=== PATIENT | female | born 1985 | race Caucasian/White ===

== ENCOUNTER 2019-02-28 16:53 | Emergency (ER) | payer OTHER ==
[2019-02-28 16:58] VITALS: BP 102/65; PULSE 92; TEMP 97.9; BMI 22.4
--- NOTE | 2019-02-28 17:00 | PDOC ---
Rapid Medical Evaluation Chief Complaint: Vomiting/Diarrhea Time Seen by Provider: 02/28/19 16:55 Medical Evaluation: Allergies Allergy/AdvReac Type Severity Reaction Status Date / Time No Known Allergies Allergy Verified 02/28/19 16:55 02/28/19 16:57 I have performed a brief in-person evaluation of this patient. The patient presents with a chief complaint of: n/v/d and diarrhea today, no f/ c. No sick contacts, travel or abx use. No pmhx Pertinent physical exam findings:Stable and well jung w/ benign abd, tolerating po in triage I have ordered the following:nothing The patient will proceed to the ED for further evaluation Discharge Disposition - Diagnosis Nausea & vomiting Qualifiers: Vomiting type: unspecified Vomiting Intractability: non-intractable Qualified Code(s): R11.2 - Nausea with vomiting, unspecified Diarrhea Qualifiers: Diarrhea type: unspecified type Qualified Code(s): R19.7 - Diarrhea, unspecified - Referrals - Patient Instructions - Post Discharge Activity
[2019-02-28] MEDS ORDERED: ONDANSETRON *ODT* 4 MG TABLET SL ONE (17:12)
[2019-02-28] MEDS ORDERED: ONDANSETRON *ODT* 4 MG TABLET ONE (17:45)
--- NOTE | 2019-02-28 18:18 | PDOC ---
History of Present Illness - General Chief Complaint: Vomiting/Diarrhea Stated Complaint: VOMITING/DIARRHEA Time Seen by Provider: 02/28/19 16:55 History Source: Patient Exam Limitations: No Limitations - History of Present Illness Travel History: No Initial Comments: 02/28/19 18:13 34-year-old female with no past medical history presents to ED with complaints of nausea and vomiting with diarrhea since last night. Patient denies abdominal pain, fever, chills but states mild dysuria. Patient denies GI irregular menses or recent travel/illness. She states continue to make urine and is able to tolerate fluids but has poor solid intake since this morning Timing/Duration: reports: intermittent Activities at Onset: reports: none Aggravating Factors: improves with: None Alleviating Factors: improves with: None Past History - Travel Traveled outside of the country in the last 30 days: No Close contact w/someone who was outside of country & ill: No - Past Medical History Allergies/Adverse Reactions: Allergies Allergy/AdvReac Type Severity Reaction Status Date / Time No Known Allergies Allergy Verified 02/28/19 16:55 Home Medications: Ambulatory Orders Vitamins (Sjr) - 1 tab PO DAILY 10/22/14 Acetaminophen [Tylenol .Regular Strength -] 650 mg PO Q4H PRN #0 tablet Ibuprofen [Motrin -] 600 mg PO Q4H PRN #0 tablet 10/25/14 Vitamins (Sjr) - 1 tab PO DAILY #0 tablet 10/25/14 Asthma: No Cancer: No Cardiac Disorders: No COPD: No Diabetes: No HTN: No Seizures: No Thyroid Disease: No Other medical history: DENIES - Immunization History Immunization Up to Date: Yes - Suicide/Smoking/Psychosocial Hx Smoking History: Never smoked Have you smoked in the past 12 months: No Hx Alcohol Use: No Drug/Substance Use Hx: No Hx Substance Use Treatment: No Patient Lives Alone: No Lives with/in: spouse/SO Review of Systems - Review of Systems Able to Perform ROS?: Yes Constitutional: No: Symptoms Reported HEENTM: No: Symptoms Reported Respiratory: No: Symptoms reported Cardiac (ROS): No: Symptoms Reported ABD/GI: Yes: Diarrhea, Nausea, Poor Appetite, Vomiting. No: Poor Fluid Intake, Abdominal cramping : Yes: Symptoms Reported, Dysuria (mild) Musculoskeletal: No: Symptoms Reported Integumentary: No: Symptoms Reported Hematologic/Lymphatic: No: Symptoms Reported *Physical Exam - Vital Signs Last Vital Signs Temp Pulse Resp BP Pulse Ox 97.9 F 92 H 18 102/65 99 02/28/19 16:56 02/28/19 16:56 02/28/19 16:56 02/28/19 16:56 02/28/19 16:56 - Physical Exam General Appearance: Yes: Nourished, Appropriately Dressed. No: Apparent Distress HEENT: negative: Pale Conjunctivae Respiratory/Chest: positive: Lungs Clear, Normal Breath Sounds. negative: Respiratory Distress, Accessory Muscle Use Cardiovascular: positive: Regular Rhythm, Regular Rate. negative: Murmur Gastrointestinal/Abdominal: positive: Soft. negative: Distended, Tenderness Musculoskeletal: negative: CVA Tenderness Extremity: positive: Normal Inspection Integumentary: positive: Normal Color, Warm, Moist Neurologic: positive: Motor Strength 5/5 (ambulatory) ED Treatment Course - Medications Given in the ED: ED Medications Discontinued Medications Generic Name Dose Route Start Last Admin Trade Name Lucasq PRN Reason Stop Dose Admin Ondansetron HCl 4 mg 02/28/19 17:12 02/28/19 17:51 Zofran Odt - SL 02/28/19 17:13 4 mg ONCE ONE Administration Medical Decision Making - Medical Decision Making 02/28/19 18:20 Chief complaint nausea vomiting and mild dysuria with diarrhea since last night. Patient states poor solid intake since this morning. Patient has no other complaints Exam. Patient had no abdominal tenderness vital signs stable patient drinking fluids upon my arrival Plan urinalysis urine urine culture along with Zofran by mouth followed by by mouth challenge 02/28/19 18:51 Patient tolerating crackers and drinking water. Patient will be discharged home with Zofran and recommended to follow bland diet plenty of fluids 02/28/19 18:52 Laboratory Tests 02/28/19 17:44 Urine HCG, Qual Negative *DC/Admit/Observation/Transfer Diagnosis at time of Disposition: Nausea & vomiting Qualifiers: Vomiting type: unspecified Vomiting Intractability: non-intractable Qualified Code(s): R11.2 - Nausea with vomiting, unspecified Diarrhea Qualifiers: Diarrhea type: unspecified type Qualified Code(s): R19.7 - Diarrhea, unspecified - Discharge Dispostion Disposition: HOME Condition at time of disposition: Improved - Referrals - Patient Instructions Additional Instructions: Take Zofran as needed for nausea. Please follow bland diet and drink plenty of fluids. - Post Discharge Activity
[2019-02-28 18:28] LABS: PH,URINE 5.5 (5.0-8.0); URINE APPEARANCE TURBID; URINE BILIRUBIN NEGATIVE (NEGATIVE); URINE COLOR DK YELLOW; URINE GLUCOSE (UA) NEGATIVE (NEGATIVE); URINE KETONE TRACE (NEGATIVE); URINE LEUK ESTERASE NEGATIVE (NEGATIVE); URINE NITRITE NEGATIVE (NEGATIVE); URINE PROTEIN NEGATIVE (NEGATIVE)
[2019-02-28 18:51] LABS: HCG,QUALITATIVE URINE Negative
[2019-02-28 19:11] LABS: URINE BACTERIA FEW /hpf (NEGATIVE); URINE CASTS 10.15 /lpf (0-8)
[2019-02-28 19:13] LABS: EPI CELLS 6.7 /HPF (0-5/HPF); URINE CRYSTALS AMORPHOUS URATE /hpf; URINE WBC 2.2 /hpf (0-5)
== END 2019-02-28 19:50 | disposition home or self-care (01) ==
LOC: JER 16:53
DX: R11.2 Nausea with vomiting, unspecified (principal); R19.7 Diarrhea, unspecified
CPT/HCPCS: 81003; 84703; 87086; 99281-25; Q0162

== ENCOUNTER 2019-04-26 12:01 | Emergency (ER) | payer OTHER ==
[2019-04-26 12:14] VITALS: TEMP 97.9; BMI 29.2
[2019-04-26] MEDS ORDERED: ONDANSETRON *ODT* 4 MG TABLET ONE (13:13)
--- NOTE | 2019-04-26 13:19 | PDOC ---
*Physical Exam - Vital Signs Last Vital Signs Temp Pulse Resp BP Pulse Ox 97.9 F 83 16 117/76 98 04/26/19 12:07 04/26/19 12:07 04/26/19 12:07 04/26/19 12:07 04/26/19 12:41 Medical Decision Making - Medical Decision Making 04/26/19 13:17 34y F no pmhx presents with complaint of chest pain last night approx 11pm - felt chest tightness, sob, a bit anxious without n/v, diaphoresis, no acute distress cta b/l no le edema mild ttp to L chest wall perc neg no risk factors for acs suspect msk pain The patient was seen and evaluated in conjunction with RAQUEL Marion under my direct supervision, ancillary studies were reviewed. I agree with the plan as outlined by RAQUEL Marion . *DC/Admit/Observation/Transfer Diagnosis at time of Disposition: Chest pain - Discharge Dispostion Disposition: HOME Condition at time of disposition: Stable - Referrals Referrals: Sebastián Hamilton MD [Staff Physician] - 2 Days - Patient Instructions Printed Discharge Instructions: DI for Costochondritis Additional Instructions: Thank you for choosing [facility]. It was a pleasure taking care of you. Your chest xray and EKG were normal Please follow-up in primary care office for further evaluation Return to the Emergency Department if your symptoms worsen or persist or have other concerning symptoms. Angeilc por elegir el [facility]. Fue un placer cuidar de ti. Tu radiografa de trax y EKG roxanna normales. Por favor dong un seguimiento en la oficina de atencin primaria para javon evaluacin adicional. Regrese al Departamento de Emergencias si cuca sntomas empeoran o persisten o si tiene otros sntomas relacionados. Print Language: MONGOLIAN - Post Discharge Activity Forms/Work/School Notes: Back to Work
--- NOTE | 2019-04-26 13:45 | PDOC ---
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 ID#[id number]) Past History - Past Medical History Allergies/Adverse Reactions: Allergies Allergy/AdvReac Type Severity Reaction Status Date / Time No Known Allergies Allergy Verified 04/26/19 12:05 Home Medications: Ambulatory Orders NK [No Known Home Medication] 04/26/19 Asthma: No Cancer: No Cardiac Disorders: No COPD: No Diabetes: No HTN: No Seizures: No Thyroid Disease: No - Immunization History Immunization Up to Date: Yes - Suicide/Smoking/Psychosocial Hx Smoking History: Never smoked Have you smoked in the past 12 months: No Hx Alcohol Use: No Drug/Substance Use Hx: No Hx Substance Use Treatment: No *Physical Exam - Vital Signs Last Vital Signs Temp Pulse Resp BP Pulse Ox 97.9 F 83 16 117/76 98 04/26/19 12:07 04/26/19 12:07 04/26/19 12:07 04/26/19 12:07 04/26/19 12:41 - Physical Exam General Appearance: No: Apparent Distress Respiratory/Chest: positive: Chest Tender (mild TTP along R chest wall), Lungs Clear, Normal Breath Sounds. negative: Respiratory Distress Cardiovascular: positive: Regular Rhythm, Regular Rate, S1, S2. negative: Murmur Gastrointestinal/Abdominal: positive: Normal Bowel Sounds, Soft. 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 States symptoms felt like she was having anxiety though never formally diagnosed with it before and not taking meds for it. Denies fever, URI sxs, cough, abd pain, n/v, urinary complaints, recent travel, use of OCPs, calf swelling. Denies smoking or drug use Probable costochondritis EKG NSR at 75 bpm, TWI lead III, V3 CXR negative PERC negative No significant risk factors for ACS Patient comfortable right now Stable for dc 04/26/19 13:39 *DC/Admit/Observation/Transfer Diagnosis at time of Disposition: Chest pain Qualifiers: Chest pain type: unspecified Qualified Code(s): R07.9 - Chest pain, unspecified - Discharge Dispostion Disposition: HOME Condition at time of disposition: Stable Decision to Admit order: No - Referrals Referrals: Sebastián Hamilton MD [Staff Physician] - 2 Days - Patient Instructions Printed Discharge Instructions: DI for Costochondritis Additional Instructions: Thank you for choosing [facility]. It was a pleasure taking care of you. Your chest xray and EKG were normal Please follow-up in primary care office for further evaluation Return to the Emergency Department if your symptoms worsen or persist or have other concerning symptoms. Angelic por elegir el [facility]. Fue un placer cuidar de ti. Tu radiografa de trax y EKG roxanna normales. Por favor dong un seguimiento en la oficina de atencin primaria para javon evaluacin adicional. Regrese al Departamento de Emergencias si cuca sntomas empeoran o persisten o si tiene otros sntomas relacionados. Print Language: VIETNAMESE - Post Discharge Activity
[2019-04-26] MEDS ORDERED: ACETAMINOPHEN 325 MG TABLET (FP) PO ONE (13:54)
[2019-04-26] MEDS ORDERED: ACETAMINOPHEN 325 MG TABLET (FP) ONE (13:55)
[2019-04-26 13:58] VITALS: BP 138/74; PULSE 68
--- NOTE | 2019-04-30 00:38 | EKG ---
Test Reason : Blood Pressure : / mmHG Vent. Rate : 075 BPM Atrial Rate : 075 BPM P-R Int : 116 ms QRS Dur : 082 ms QT Int : 370 ms P-R-T Axes : 041 026 018 degrees QTc Int : 413 ms NORMAL SINUS RHYTHM NORMAL ECG NO PREVIOUS ECGS AVAILABLE Confirmed by MD Emmanuel, Cb ([id number]) on 04/30/2019 12:37:45 AM Referred By: Confirmed By:Cb Benitez MD
== END 2019-04-26 14:14 | disposition home or self-care (01) ==
LOC: JER 12:01
DX: M94.0 Chondrocostal junction syndrome [Tietze] (principal); R07.9 Chest pain, unspecified
CPT/HCPCS: 71046-TC-FY; 93005; 93010; 99284-25

== ENCOUNTER 2020-04-21 11:00 | Inpatient (IN) | payer OTHER ==
[2020-04-22] MEDS ORDERED: morphine SULFATE/PF 0.5 MG/ML (2cc Syringe - QUVA) ONE (12:18)
[2020-04-22] MEDS ORDERED: OXYTOCIN 20 UNITS in 0.9% NS 20 UNIT/1,000 ML INFUS.BAG IV ONE (12:20)
[2020-04-22] MEDS ORDERED: OXYTOCIN 10 UNITS/ML VIAL ONE (12:20)
[2020-04-22] MEDS ORDERED: ceFAZolin SODIUM 1 GM VIAL ONE ×2 (12:46→12:47)
[2020-04-22] MEDS ORDERED: ONDANSETRON 4 MG/2 ML VIAL IVPUSH PRN (12:54)
[2020-04-22] MEDS ORDERED: ACETAMINOPHEN 325 MG TABLET (FP) PO PRN (12:54)
[2020-04-22] MEDS ORDERED: IBUPROFEN 600 MG TABLET (FP) PO PRN ×2 (12:54→15:16)
[2020-04-22 13:04] VITALS: BMI 29.3
[2020-04-22] MEDS ORDERED: ELECTROLYTE-148 SOLN 500 ML IV ONE (13:12)
[2020-04-22] MEDS ORDERED: CITRIC ACID/SODIUM CITRATE 30 ML UNIT-DOSE CUP PO ONE (13:12)
[2020-04-22] MEDS ORDERED: ELECTROLYTE-148 SOLN 1,000 ML IV SCH (13:15)
--- NOTE | 2020-04-22 13:24 | HP ---
Past Medical History - Primary Care Physician PCP:: Narcisa Church - Admission Chief Complaint: 35 yrs , previous c/sx 3 , admitted for repeat c/section, she requests for voluntory sterlization History of Present Illness: PNC at , [facility] wt gain 18 lbs 09/20/19 : O Pos, Hbsag neg, Hep C nr, pap nilm ,gc/ct neg, rubella immune, measles immune , sickle neg, 11/07/19 AFP neg 01/16/20 : 1 hr gtt 12, syphiis test neg 04/01/20 : GBS neg, gc/ct neg ,Hiv neg h/h 8.0/26.0 US done by [facility] no report History Source: Patient, Medical Record Limitations to Obtaining History: No Limitations, Language Barrier - Past Medical History 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 No: Asthma Gastrointestinal: Yes: Other (declines) Hepatobiliary: No: Hepatitis B, Hepatitis C Renal/: No: UTI ...: 4 ...Para: 3 (G1 11/26/09 P c/s , G2 09/28/11, RC/S-, G3 10/22/14 --RC/S-) ...Term: 3 ...: 0 ...Spon : 0 ...Induced : 0 ...Living Children: 3 ...Multiple Gestation: 0 ...LMP: 07/20/19 ... Weeks Gestation by Dates: 39.3 ...EDC by Dates: 04/25/20 ...EDC by Sono: 04/25/20 Heme/Onc: Yes: Anemia. No: Sickle Cell Trait Infectious Disease: No: HIV, STD's Psych: No: Addictions, Anxiety, Bipolar, Depression, Panic, Psychosis, Schizophrenia, Other Endocrine: No: Diabetes Mellitus, Hyperthyroidism, Hypothyroidism - Past Surgical History Past Surgical History: Yes: (G109/21/10, G2 09/28/11, G310/22/14) Hx Myomectomy: No Hx Transabdominal Cerclage: No - Smoking History Smoking history: Never smoked Have you smoked in the past 12 months: No - Alcohol/Substance Use Hx Alcohol Use: No - Social History History of Recent Travel: No Home Medications - Allergies Allergies/Adverse Reactions: Allergies Allergy/AdvReac Type Severity Reaction Status Date / Time No Known Allergies Allergy Verified 04/22/20 12:47 - Home Medications Home Medications: Ambulatory Orders Vits96/Iron Fum/Folic [ Tablet] 1 tab PO DAILY 04/22/20 Physical Exam - Maternity Vital Signs: Vital Signs Temperature 98.1 F 04/22/20 11:55 Pulse Rate 90 04/22/20 11:55 Respiratory Rate 18 04/22/20 11:55 Blood Pressure 106/75 04/22/20 11:55 O2 Sat by Pulse Oximetry (%) Constitutional: Yes: Pallor Eyes: Yes: WNL HENT: Yes: WNL, Normocephalic Neck: Yes: WNL Cardiovascular: Yes: WNL, Regular Rate and Rhythm Lungs: Clear to auscultation Breast(s): Yes: WNL - Abdominal Exam/OB Fundal Height: 38 Number of Fetuses: Single Presentation: Vertex Contractions: No Monitor Mode: External Heart Rate (range): 135 Heart Rate Location: [facility] Category: I Accelerations: Non-Uniform Decelerations: None - Vaginal Exam/OB Vaginal Bleeding: No Speculum Exam: No Dilatation (cm): close Effacement (%): unefface Amniotic Membrane Status: Intact Presentation: Vertex/Position Station: -4 - Physical Exam Musculoskeletal: Yes: WNL Extremities: Yes: WNL. No: Calf Tenderness Edema: LLE: 1+, RLE: 1+ Integumentary: Yes: Incision (pfannensteil scar) Deep Tendon Reflex Grade: Normal +2 Psychiatric: Yes: WNL, Alert, Oriented - Labs Lab Results: Laboratory Tests 04/19/20 04/19/20 04/19/20 09:25 09:25 09:25 WBC 5.0 RBC 3.84 Hgb 8.1 L Hct 26.6 L Plt Count 201 PT with INR 9.90 INR 0.84 Sodium 136 Potassium 3.9 Chloride 105 Carbon Dioxide 24 Anion Gap 8 BUN 7.2 Creatinine 0.5 L Est GFR (CKD-EPI)AfAm 144.31 Est GFR (CKD-EPI)NonAf 124.51 Random Glucose 79 Calcium 8.2 L Total Bilirubin 0.7 AST 15 ALT 10 L Alkaline Phosphatase 193 H Total Protein 6.8 Albumin 2.9 L COVID-19 (MARIA VICTORIA) 04/19/20 09:45 WBC RBC Hgb Hct Plt Count PT with INR INR Sodium Potassium Chloride Carbon Dioxide Anion Gap BUN Creatinine Est GFR (CKD-EPI)AfAm Est GFR (CKD-EPI)NonAf Random Glucose Calcium Total Bilirubin AST ALT Alkaline Phosphatase Total Protein Albumin COVID-19 (MARIA VICTORIA) Detected H Hemorrhage Risk Assessment - Risk Factors Medium Risk Factors: Yes: Prior , uterine surgery,or multiple laparotomies Risk Score: 1 Risk Level: Medium Risk Problem List - Problems (1) with 39 completed weeks gestation Code(s): Z3A.39 - 39 WEEKS GESTATION OF (2) Previous section Code(s): Z98.891 - HISTORY OF UTERINE SCAR FROM PREVIOUS SURGERY (3) Multiparity Code(s): Z64.1 - PROBLEMS RELATED TO MULTIPARITY (4) AMA (advanced maternal age) multigravida 35+ Code(s): O09.529 - SUPERVISION OF ELDERLY MULTIGRAVIDA, UNSPECIFIED TRIMESTER (5) Anemia Code(s): D64.9 - ANEMIA, UNSPECIFIED Qualifiers: Anemia type: iron deficiency (6) Lab test positive for detection of COVID-19 virus Code(s): U07.1 - COVID POSITIVE Assessment/Plan 35 yrs , previous c/s x3 ,, 39.3 weeks, requests for repeat c/sec & voluntory sterlization Plan Repeat c/section + BTL Pt through [facility] was explained about r/b/a not ltd to hemorrhage, infection , injury bladder, bowel, uterus, adhesions problems, may not be possible to perform BTL . pt also notified , she is Anemic & Covid Test Pos
[2020-04-22] MEDS ORDERED: KETOROLAC TROMETHAMINE 30 MG/1 ML VIAL ONE (14:32)
[2020-04-22 14:39] LABS: CORD HCO3 24.5 mmHg (20-29); CORD PCO2 59.5 mmHg (30-78); CORD pH 7.233 (7.14-7.44)
[2020-04-22 14:41] LABS: CORD HCO3 19.7 mmHg (20-29); CORD pH 7.278 (7.14-7.44)
[2020-04-22] MEDS ORDERED: METHYLERGONOVINE MALEATE 0.2 MG/1 ML AMP IM PRN (15:16)
[2020-04-22] MEDS ORDERED: SENNOSIDES/DOCUSATE COMBO (SENNA PLUS) TABLET (UD) PO PRN (15:16)
[2020-04-22] MEDS ORDERED: IBUPROFEN 800 MG/8 ML IJ IVPB PRN (15:16)
--- NOTE | 2020-04-22 15:35 | PN ---
Delivery - Delivery Section: Repeat, Low Flap Transverse (Lysis of adhesions & BTL) Type of Anesthesia: Spinal EBL (cc): 1,000 (loaiza output 500 ml kenji color ) Delivery, Single - Stages of Labor Date of Delivery: 04/22/20 Time of Delivery: 13:44 Time Placenta Delivered: 13:45 Placenta: Yes: Manual Removal, Uterine Exploration - Condition of Captain/Check Airman/Complex Human Resources Manager Present: Yes Name: Cheryl Vasquez Infant Gender: Male Weight: 8 lb 3 oz Total Hours ROM (Hrs/Mins): 2 MINUTES - 1 Minute Total Score: 9 5 Minutes Total Score: 9 - [place] Feeding Plan Initial Plan: Elected not to breastfeed exclusively throughout hospitalization Remarks - Remarks Remarks: 35 yrs , 39.3 weeks , previous c/sx3 , requests for repeat c/s , & voluntary sterilization pnc at [address] [place] [address] . GBS neg Anemia severe Covid Test Pos Intraop severe dense adhesions bet ant abd wall directly adherent to uterus , no plane in between rectus muscle & uterus . extra peritoneal c/section as performed BTL performed after finding window , could enter intra peritoneally. Intraop Dr Parmjit Hernandez consult obtained . Intraop 2 gm Iv Ancef was given
--- NOTE | 2020-04-22 15:46 | PD.OB.PROG ---
Past Medical History - Primary Care Physician Documenting Provider Type: Laborist - Nursing Documentation Maternal Triage Index: Maternal Triage Index ( Priority 5, Requesting MFTI) Hemorrhage Risk Assessment: Risk Level Medium Risk High Level Risk Factors for None Hemorrhage Medium Level Risk Factors for Prior , uterine Hemorrhage Low Level Risk Factors for Jones Pregnaancy,Four (4) or less previous,No Hemorrhage known bleeding,No history of PPH Nursing Documentation Reviewed: Yes - Past Medical History ...: 4 ...Para: 3 (G1 11/26/09 P c/s , G2 09/28/11, RC/S-, G3 10/22/14 --RC/S-) ...Term: 3 ...: 0 ...Spon : 0 ...Induced : 0 ...Living Children: 3 ...Multiple Gestation: 0 ...LMP: 07/20/19 ... Weeks Gestation by Dates: 39.3 ...EDC by Dates: 04/25/20 ...EDC by Sono: 04/25/20 - Past Surgical History Past Surgical History: Yes: (G109/21/10, G2 09/28/11, G310/22/14) - Smoking History Smoking history: Never smoked Have you smoked in the past 12 months: No - Alcohol/Substance Use Hx Alcohol Use: No - Social History History of Recent Travel: No Physical Exam - Obstetrical Vital Signs: Vital Signs Temperature 98.1 F 04/22/20 11:55 Pulse Rate 90 04/22/20 11:55 Respiratory Rate 18 04/22/20 11:55 Blood Pressure 106/75 04/22/20 11:55 O2 Sat by Pulse Oximetry (%) Assessment/Plan called by nurse to provide some intraoperative assistance to and RAQUEL. term undergoing 4th and btl. baby already delivered and hysterotomy closed. btl in progress. hemostasis good. closure continued without difficulty. case completed by and RAQUEL. count correct.
[2020-04-22] MEDS: OXYTOCIN 20 UNITS in 0.9% NS 20 UNIT/1,000 ML INFUS.BAG IV SCH (16:14)
[2020-04-22] MEDS ORDERED: CEFAZOLIN 1 GM in DEXTROSE 5%-WATER - 50 ML IVPB SCH (18:00)
[2020-04-22] MEDS: CEFAZOLIN 1 GM/D5W 1 GM/50 ML BAG IVPB SCH (18:07)
[2020-04-22 18:58] LABS: BASO % 0.4 % (0-2.0); EOS % 0.2 % (0-4.5); HEMATOCRIT 22.9 % (32.4-45.2); LYMPH % 8.2 % (8-40); MCH 20.8 pg (25.7-33.7); MEAN CELL VOLUME 69.4 fl (80-96); MEAN PLT VOLUME 10.1 fl (7.5-11.1); MONO % 8.2 % (3.8-10.2); PLATELET COUNT 167 K/MM3 (134-434); RDW 18.2 % (11.6-15.6); WHITE BLOOD COUNT 8.1 K/mm3 (4.0-10.0)
[2020-04-22 19:00] LABS: HEMOGLOBIN 6.9 GM/dL (10.7-15.3)
[2020-04-22 19:36] LABS: ANISOCYTOSIS 1+; PLATELET ESTIMATE ADEQUATE
[2020-04-23] MEDS: CEFAZOLIN 1 GM/D5W 1 GM/50 ML BAG IVPB SCH ×2 (01:27→09:10)
[2020-04-23] MEDS: OXYTOCIN 20 UNITS in 0.9% NS 20 UNIT/1,000 ML INFUS.BAG IV SCH (01:27)
[2020-04-23] MEDS ORDERED: oxyCODONE HCL 5 MG TABLET PO PRN (06:00)
[2020-04-23 08:55] LABS: BASO % 0.3 % (0-2.0); EOS % 0.2 % (0-4.5); HEMATOCRIT 21.1 % (32.4-45.2); LYMPH % 9.9 % (8-40); MCHC 30.3 g/dl (32.0-36.0); MEAN CELL VOLUME 69.5 fl (80-96); MEAN PLT VOLUME 9.8 fl (7.5-11.1); MONO % 8.1 % (3.8-10.2); NEUT % 81.5 % (42.8-82.8); PLATELET COUNT 152 K/MM3 (134-434); RBC 3.03 M/mm3 (3.60-5.2); RDW 18.3 % (11.6-15.6); WHITE BLOOD COUNT 6.5 K/mm3 (4.0-10.0)
[2020-04-23 09:05] LABS: HEMOGLOBIN 6.4 GM/dL (10.7-15.3)
[2020-04-23] MEDS: PRENATAL VITAMINS W/ FOLIC ACID TABLET (FP) PO SCH (09:10)
[2020-04-23] MEDS: ENOXAPARIN NA (PORCINE) 40 MG/0.4 ML DISP.SYRIN SQ SCH (09:10)
--- NOTE | 2020-04-23 10:55 | PN ---
Post Progress Note - Subjective Subjective: pt does not c/o dizziness she voided after catheter is taken out Post Day: 1 Type of Delivery: Repeat C/S (BTL, Lysis of adhesions) Vital Signs: Vital Signs Temperature 98.2 F 04/23/20 09:17 Pulse Rate 104 H 04/23/20 09:17 Respiratory Rate 18 04/23/20 09:17 Blood Pressure 115/64 04/23/20 09:17 O2 Sat by Pulse Oximetry (%) 98 04/23/20 09:00 Breast Exam: Yes: Soft, Other (not BF ). No: Engorged Uterus: Yes: Fundus Firm, Fundus below umbilicus, Non-tender Incision: Yes: Dressing dry and intact. No: Redness, Oozing Abdomen/GI: Yes: Abdomen soft, Tolerating PO (clear fluid ). No: Abdominal Distention, Tender, Passing flatus Lochia: Yes: Rubra Lochia, amount: Moderate Extremities: Yes: Calves non-tender Perineum: Yes: Intact Activity: Other (oob ) - Labs Labs: CBC WBC 6.5 K/mm3 (4.0-10.0) 04/23/20 08:00 RBC 3.03 M/mm3 (3.60-5.2) L 04/23/20 08:00 Hgb 6.4 GM/dL (10.7-15.3) L* 04/23/20 08:00 Hct 21.1 % (32.4-45.2) L 04/23/20 08:00 MCV 69.5 fl (80-96) L 04/23/20 08:00 MCH 21.0 pg (25.7-33.7) L 04/23/20 08:00 MCHC 30.3 g/dl (32.0-36.0) L 04/23/20 08:00 RDW 18.3 % (11.6-15.6) H 04/23/20 08:00 Plt Count 152 K/MM3 (134-434) 04/23/20 08:00 MPV 9.8 fl (7.5-11.1) 04/23/20 08:00 Absolute Neuts (auto) 5.3 K/mm3 (1.5-8.0) 04/23/20 08:00 Neutrophils % 81.5 % (42.8-82.8) 04/23/20 08:00 Lymphocytes % 9.9 % (8-40) D 04/23/20 08:00 Monocytes % 8.1 % (3.8-10.2) 04/23/20 08:00 Eosinophils % 0.2 % (0-4.5) 04/23/20 08:00 Basophils % 0.3 % (0-2.0) 04/23/20 08:00 Nucleated RBC % 0 % (0-0) 04/23/20 08:00 Hypochromia 2+ 04/22/20 18:45 Platelet Estimate Adequate 04/22/20 18:45 Anisocytosis 1+ 04/22/20 18:45 Laboratory Tests 04/19/20 04/22/20 09:45 18:45 Hgb 6.9 L* Hct 22.9 L Plt Count 167 COVID-19 (MARIA VICTORIA) Detected H Other Findings, Remarks: rs cta i/o last night documented 125 ml Problem List - Problems (1) with 39 completed weeks gestation Code(s): Z3A.39 - 39 WEEKS GESTATION OF (2) Previous section Code(s): Z98.891 - HISTORY OF UTERINE SCAR FROM PREVIOUS SURGERY (3) Multiparity Code(s): Z64.1 - PROBLEMS RELATED TO MULTIPARITY (4) AMA (advanced maternal age) multigravida 35+ Code(s): O09.529 - SUPERVISION OF ELDERLY MULTIGRAVIDA, UNSPECIFIED TRIMESTER (5) Anemia Code(s): D64.9 - ANEMIA, UNSPECIFIED Qualifiers: Anemia type: iron deficiency (6) Lab test positive for detection of COVID-19 virus Code(s): U07.1 - COVID POSITIVE (7) examination following delivery Code(s): Z39.2 - ENCOUNTER FOR ROUTINE FOLLOW-UP Assessment/Plan post 4th RC/S BTL Lysis of adhesions , severe Anemia , pt is adjusting well to anemia r/b/a to pct explained , not ltd to reaction, infection, etc, expectant management , will slowly increase her hgb . pt agrees for PCT , will transfuse 2 PCT . repeat cbc in AM
[2020-04-23] MEDS ORDERED: BISACODYL 10 MG SUPP.RECT RC PRN (15:17)
[2020-04-23] MEDS: FERROUS SO4 325 MG TABLET (FP) PO SCH (17:33)
[2020-04-23] MEDS: SIMETHICONE 80 MG TAB.CHEW (FP) PO PRN (17:36)
--- NOTE | 2020-04-24 06:46 | PN ---
Post Progress Note - Subjective Subjective: Pain controlled. OOB, ambulate F/U AM CBC, s/p transfusion 2U D/C to home POD#3 Janelle Parra MD Post Day: 2 Type of Delivery: Repeat C/S Vital Signs: Vital Signs Temperature 98.4 F 04/23/20 22:53 Pulse Rate 74 04/23/20 22:53 Respiratory Rate 18 04/23/20 22:53 Blood Pressure 115/74 04/23/20 22:53 O2 Sat by Pulse Oximetry (%) 98 04/23/20 21:00 Uterus: Yes: Fundus below umbilicus Incision: Yes: Dressing dry and intact, Elizabeth intact Abdomen/GI: Yes: Abdomen soft, Passing flatus, Tolerating PO Lochia: Yes: Rubra Lochia, amount: Small Extremities: Yes: Calves non-tender Perineum: Yes: Intact Activity: Ambulating - Labs Labs: CBC WBC 6.5 K/mm3 (4.0-10.0) 04/23/20 08:00 RBC 3.03 M/mm3 (3.60-5.2) L 04/23/20 08:00 Hgb 6.4 GM/dL (10.7-15.3) L* 04/23/20 08:00 Hct 21.1 % (32.4-45.2) L 04/23/20 08:00 MCV 69.5 fl (80-96) L 04/23/20 08:00 MCH 21.0 pg (25.7-33.7) L 04/23/20 08:00 MCHC 30.3 g/dl (32.0-36.0) L 04/23/20 08:00 RDW 18.3 % (11.6-15.6) H 04/23/20 08:00 Plt Count 152 K/MM3 (134-434) 04/23/20 08:00 MPV 9.8 fl (7.5-11.1) 04/23/20 08:00 Absolute Neuts (auto) 5.3 K/mm3 (1.5-8.0) 04/23/20 08:00 Neutrophils % 81.5 % (42.8-82.8) 04/23/20 08:00 Lymphocytes % 9.9 % (8-40) D 04/23/20 08:00 Monocytes % 8.1 % (3.8-10.2) 04/23/20 08:00 Eosinophils % 0.2 % (0-4.5) 04/23/20 08:00 Basophils % 0.3 % (0-2.0) 04/23/20 08:00 Nucleated RBC % 0 % (0-0) 04/23/20 08:00 Hypochromia 2+ 04/22/20 18:45 Platelet Estimate Adequate 04/22/20 18:45 Anisocytosis 1+ 04/22/20 18:45 Assessment/Plan 35yo s/p RLTCS, BTL POD#2 c/b PP anemia s/p transfusion Routine PP care PO pain control F/U AM Labs, s/p 2U PRBC OOB, ambulate D/C to home POD#3 Janelle Parra MD
--- NOTE | 2020-04-24 08:20 | OP ---
DATE OF OPERATION: 04/22/2020 PREOPERATIVE DIAGNOSES: Weeks 39.3, previous section x3 and voluntary sterilization. OPERATION: Repeat low flap transverse section, bilateral tubal ligation, lysis of adhesion. SURGEON: Narcisa Church MD QUALITY [employer] QA LAB ANALYST: RAQUEL Rios INTRAOPERATIVE CONSULTATION: Parmjit Hernandez MD (the OB physician) ANESTHESIOLOGIST: Linda Gillette MD ANESTHESIA: Spinal. FINDINGS: This is a 35-year-old 4, para 3-0-0-3 with previous c- sections x3 with severe anemia, hemoglobin 8.1, serology COVID test positive, not in labor and request for voluntary sterilization. PROCEDURE: Briggs catheter was placed. Abdomen was shaved, prepped and she was taken to operating room table. Spinal anesthesia was given. She was in supine position and SCD stockings were connected. Abdomen was painted and draped in usual manner. Pfannenstiel incision was made. The skin, subcutaneous tissue, anterior rectus sheath were incised transversely. Then the anterior rectus sheath was from the rectus muscle. Then the rectus muscle and parietal peritoneum were very densely adherent. Tried to separate the rectus muscle from underneath tissues. Direct entry into the uterus was encountered. Muscles were tried to open laterally and lower uterine segment was exposed .Bladder was identified Lower uterine segment was incised transversely. Amniotic fluid was clear.. The baby was delivered at 3:44 p.m., baby boy. was 9, 9 from LOT position. Baby's weight was 8 pounds 3 ounces. Cord was clamped, cut and cord blood was collected. Placenta was removed completely with the membranes. Then the uterine incision was closed in 2 layers, 1st layer with a continuous locking with a Biosyn 0 suture, 2nd layer with a continuous intermittently locking with a Biosyn 0 suture. Between the uterus and the rectus uterus was adherent in the upper segment bleeding was encountered. Hemostatic sutures were taken and hemostasis was achieved and tried to enter peritoneal cavity Lysis of adhesion was done from the right side and the parietal peritoneum was opened. One window was found and parietal peritoneum was extended and the peritoneal cavity was entered. First the right side tube was traced up to isthmic area. The tube was clamped, cauterized and cut with the LigaSure. In the meantime Dr. Hernandez now scrubbed in and we tried to bring the uterus towards the right side and the left tube was traced and it was clamped, cut and cauterized up to the mid ampullary portion of the tube and it was clamped, cauterized and cut with the LigaSure again. Hemostasis was verified, left side, Left side also uterus and anterior abdominal wall was densely adherent& vascular adhesions encountered , could not be at all. On the right side the anterior abdominal wall was adherent to the round ligament and lower portion of uterus below it hemostasis verified again. Parietal peritoneum was closed with Vicryl 0 suture and now hemostasis in the rectus muscle and over the uterus ant wall was tried to achieve. Hemostatic sutures were taken and cauterization was done. Surgicel was applied. The bladder was intact. The urine in the Briggs catheter was kenji colored but was good. Just in the middle 2 interrupted sutures were taken in the rectus muscle. All the rectus muscle was not intact ,muscle fragments were irregularly placed & friable hence did not approximate them. Then the anterior rectus sheath was closed with a Vicryl 0 suture and continuous sutures were taken. Rectus sheath was mobilized from the skin and anterior rectus sheath was closed with a Vicryl 0 continuous suture. Subcutaneous tissue was closed with 2-0 chromic catgut and then skin was approximated with rajni. Pressure dressing was given. Patient tolerated procedure well and she was transferred to the recovery room in stable condition. Before that, blood clots were removed from the vagina. Estimated blood loss 1000 mL and the urine output was 500 mL intraoperatively and she received 2 g of IV Ancef. Zaynab [id number] MTDD
[2020-04-24 09:08] LABS: BASO % 0.5 % (0-2.0); EOS % 0.8 % (0-4.5); HEMATOCRIT 27.7 % (32.4-45.2); HEMOGLOBIN 8.9 GM/dL (10.7-15.3); LYMPH % 13.3 % (8-40); MCH 23.9 pg (25.7-33.7); MEAN CELL VOLUME 74.6 fl (80-96); MEAN PLT VOLUME 9.9 fl (7.5-11.1); MONO % 8.3 % (3.8-10.2); NEUT % 77.1 % (42.8-82.8); PLATELET COUNT 182 K/MM3 (134-434); RBC 3.71 M/mm3 (3.60-5.2); RDW 22.8 % (11.6-15.6); WHITE BLOOD COUNT 8.1 K/mm3 (4.0-10.0)
[2020-04-24] MEDS: FERROUS SO4 325 MG TABLET (FP) PO SCH ×2 (09:30→17:05)
[2020-04-24] MEDS: PRENATAL VITAMINS W/ FOLIC ACID TABLET (FP) PO SCH (09:30)
[2020-04-24] MEDS: ENOXAPARIN NA (PORCINE) 40 MG/0.4 ML DISP.SYRIN SQ SCH (09:30)
--- NOTE | 2020-04-24 12:46 | PN ---
Progress Note (short form) - Note Progress Note: s/p rc/s + btl day #2 pt is s/p 2 PCT pt feels better, pain scale 3-4/10 . voiding without difficulty bleeding less moderate tolerating diet well . BM not done p/a dressing changed ut below umblicus , tender to palpate . incision dry, rajni in situ . no erythema, no discharge from the wound Selected Entries 04/24/20 09:47 Temperature 98.4 F Pulse Rate 84 Blood Pressure 127/76 Laboratory Tests 04/24/20 07:40 WBC 8.1 RBC 3.71 Hgb 8.9 L Hct 27.7 L D MCV 74.6 L MCH 23.9 L D MCHC 32.0 RDW 22.8 H Plt Count 182 MPV 9.9 Absolute Neuts (auto) 6.2 Neutrophils % 77.1 Lymphocytes % 13.3 D Monocytes % 8.3 Eosinophils % 0.8 D Basophils % 0.5 Nucleated RBC % 0 stable s/p 2 pct post rc/s/btl. lysis of exensive adhesions Plan. swedish interpretor used to explain instructions . pt explained about extent of surgery anemia counselled covid-19 precutions, self quarintine explained rtc 1 weeks for rajni removal Problem List - Problems (1) with 39 completed weeks gestation Code(s): Z3A.39 - 39 WEEKS GESTATION OF (2) Previous section Code(s): Z98.891 - HISTORY OF UTERINE SCAR FROM PREVIOUS SURGERY (3) Multiparity Code(s): Z64.1 - PROBLEMS RELATED TO MULTIPARITY (4) AMA (advanced maternal age) multigravida 35+ Code(s): O09.529 - SUPERVISION OF ELDERLY MULTIGRAVIDA, UNSPECIFIED TRIMESTER (5) Anemia Code(s): D64.9 - ANEMIA, UNSPECIFIED Qualifiers: Anemia type: iron deficiency (6) Lab test positive for detection of COVID-19 virus Code(s): U07.1 - COVID POSITIVE (7) examination following delivery Code(s): Z39.2 - ENCOUNTER FOR ROUTINE FOLLOW-UP
--- NOTE | 2020-04-25 06:23 | DS ---
Physical Exam-FAMILY PRACTICE PHYSICIAN Vital Signs: Vital Signs Temperature 98.7 F 04/24/20 22:00 Pulse Rate 86 04/24/20 22:00 Respiratory Rate 20 04/24/20 22:00 Blood Pressure 110/72 04/24/20 22:00 O2 Sat by Pulse Oximetry (%) 97 04/24/20 21:00 Constitutional: Yes: Well Nourished, No Distress, Calm Eyes: Yes: WNL, Conjunctiva Clear, EOM Intact HENT: Yes: WNL, Atraumatic, Normocephalic Neck: Yes: WNL, Supple, Trachea Midline Cardiovascular: Yes: WNL, Regular Rate and Rhythm Respiratory: Yes: WNL, Regular, CTA Bilaterally Gastrointestinal: Yes: WNL ...Rectal Exam: Yes: WNL Renal/: Yes: WNL ....Post : Yes: Uterus firm, Slight lochia rubra Breast(s): Yes: WNL Musculoskeletal: Yes: WNL Extremities: Yes: WNL Integumentary: Yes: WNL Wound/Incision: Yes: Clean/Dry, Well Approximated, [place] Intact Neurological: Yes: WNL, Alert, Oriented ...Motor Strength: WNL Psychiatric: Yes: WNL, Alert, Oriented Labs: CBC, BMP 04/24/20 07:40 Delivery - Delivery Section: Repeat, Low Flap Transverse (Lysis of adhesions & BTL) Type of Anesthesia: Spinal EBL (cc): 1,000 (loaiza output 500 ml kenji color ) Delivery, Single - Stages of Labor Date of Delivery: 04/22/20 Time of Delivery: 13:44 Time Placenta Delivered: 13:45 Placenta: Yes: Manual Removal, Uterine Exploration - Condition of Infant Funeral Home Associate/Premises Technician Present: Yes Name: Cheryl Vasquez Infant Gender: Male Weight: 8 lb 3 oz Total Hours ROM (Hrs/Mins): 2 MINUTES - 1 Minute Total Score: 9 5 Minutes Total Score: 9 - [place] Feeding Plan Initial Plan: Elected not to breastfeed exclusively throughout hospitalization Discharge Summary Problems reviewed: Yes Reason For Visit: & BTL Current Active Problems AMA (advanced maternal age) multigravida 35+ (Acute) Anemia (Acute) Lab test positive for detection of COVID-19 virus (Acute) Multiparity (Acute) examination following delivery (Acute) with 39 completed weeks gestation (Acute) Previous section (Acute) Procedures: Principal: repeat c/s Hospital Course: anemia Plan of Treatment: iron, vit. follow up [facility] 1 week - Instructions Diet, Activity, Other Instructions: Post Instructions DIET: Continue good diet high in protein, calcium, and iron rich foods. Drink at least eight (8) glasses of water daily in addition to other fluids. ct Regular diet MEDICATIONS: Continue vitamins and iron as previously directed. Motrin and Tylenol may be taken for minor discomfort. ACTIVITY: Mild to moderate exercise may be started in two (2) weeks. Take frequent rest periods. Resume normal activity after six (6) week check up. WOUND CARE OF OPERATIVE SITE: Continue use of perineal bottle until vaginal discharge stops. Keep area clean. Shower daily. Keep abdominal wound dry. Report any drainage or redness to physician. Tub baths, tampons and douches are not permitted for [address] Breast feeding & or Bottle feeding BREAST CARE: (For those that are not ): If engorgement occurs: Wear tight fitting bra. Take Tylenol or Motrin for pain. Apply cold packs (ice in bags to each breast ) FAMILY PLANNING: There are many control alternatives to pursue and they should be discussed at your first office visit. You may resume sexual activity after your six (6) week check up. (Remember, is not a contraceptive) NEXT PHYSICIAN APPOINTMENT: Be certain to call for a one (1) week appointment, unless otherwise directed. RTC 1 week for wound check, , rajni removal Call Clinic or got to Emergency Dept if you have any of the following: Heavy vaginal bleeding Painful urination Leg pain Unusual odor noted to vaginal bleeding High fever Red streaking noted on breast Referrals: Narcisa Church MD [Staff Physician] - Disposition: HOME - Home Medications Comprehensive Discharge Medication List: Ambulatory Orders Vits96/Iron Fum/Folic [ Tablet] 1 tab PO DAILY 04/22/20 Acetaminophen [Tylenol .Regular Strength -] 500 mg PO Q4H PRN #30 tablet 04/23/20 Ferrous Sulfate [Feosol] 325 mg PO BIDWM #60 tab 04/23/20 Ibuprofen [Motrin -] 600 mg PO Q4H PRN #30 tablet 04/23/20 Vitamins (Sjr) - 1 tab PO DAILY #30 tablet 04/23/20 Sennosides/Docusate Sodium [Pericolace -] 2 tablet PO HS PRN #30 tablet 04/23/20 Masks 30 each OD DAILY #30 each 04/24/20 Miscellaneous Drug Not In Syst [PULSE OXIMETER] 1 each NR UTDICT 30 Days #1 each 04/24/20 Thermometr,Infrared,No Contact [[place]ull[place] Choice Duo] 1 each ASDIR #1 each 04/24/20
[2020-04-25] MEDS: FERROUS SO4 325 MG TABLET (FP) PO SCH (09:21)
[2020-04-25] MEDS: PRENATAL VITAMINS W/ FOLIC ACID TABLET (FP) PO SCH (09:21)
[2020-04-25] MEDS: ENOXAPARIN NA (PORCINE) 40 MG/0.4 ML DISP.SYRIN SQ SCH (09:21)
[2020-04-25] MEDS: SIMETHICONE 80 MG TAB.CHEW (FP) PO PRN (09:21)
[2020-04-25 10:04] LABS: BASO % 0.6 % (0-2.0); EOS % 1.6 % (0-4.5); HEMATOCRIT 28.7 % (32.4-45.2); HEMOGLOBIN 9.3 GM/dL (10.7-15.3); LYMPH % 17.9 % (8-40); MCH 24.1 pg (25.7-33.7); MCHC 32.4 g/dl (32.0-36.0); MEAN CELL VOLUME 74.5 fl (80-96); MEAN PLT VOLUME 10.1 fl (7.5-11.1); NEUT % 71.9 % (42.8-82.8); PLATELET COUNT 179 K/MM3 (134-434); RBC 3.85 M/mm3 (3.60-5.2); RDW 22.4 % (11.6-15.6)
[2020-04-25 13:27] VITALS: BP 120/76; PULSE 76; TEMP 97.4
--- NOTE | 2020-04-29 15:10 | PATH ---
Surgical Pathology Report Patient Name: JOHNNY ISBELL [facility]. Rec. #: [id number] /Age/Gender: 1985 (Age: 35) / F Account: [id number] Location: [facility] OBS/CERTIFIED ORTHOPTIST Taken: 04/22/2020 Received: 04/23/2020 Reported: 04/29/2020 Physicians: Narcisa Church M.D. Specimen(s) Received A: PLACENTA B: RIGHT FALLOPIAN TUBE C: LEFT FALLOPIAN TUBE Clinical History , 39.3 weeks gestation, x3, coded 19 positive asymptomatic Final Diagnosis A. PLACENTA: THIRD TRIMESTER PLACENTA. TRIVASCULAR CORD. MEMBRANES WITH NO DIAGNOSTIC ABNORMALITIES. B. RIGHT FALLOPIAN TUBE, SALPINGECTOMY: PORTION OF FALLOPIAN TUBE WITH SALPIGIOSIS. COMPLETE CROSS SECTION OF THE FALLOPIAN TUBE LUMEN IDENTIFIED C. LEFT FALLOPIAN TUBE, SALPINGECTOMY: PORTION OF FALLOPIAN TUBE WITH NO SIGNIFICANT PATHOLOGIC CHANGE. COMPLETE CROSS SECTION OF THE FALLOPIAN TUBE LUMEN IDENTIFIED. Electronically Signed Brody Jimenes M.D. Gross Description A. The specimen is received fresh labeled placenta and is a 390 gram, 20.0 x 16.0 x 2.4 cm. placenta with attached membranes and umbilical cord. The attached membranes are pereyra, translucent with focal opacities and insert marginally. The umbilical cord measures 16 cm. in length and averages 1 cm. in diameter. The cord inserts eccentrically, 3.5 cm. to the nearest margin. No true knots or strictures are identified. Cut surface of the umbilical cord reveals 3 vessels. The surface is mitchell-blue with minimal fibrin deposition and appropriate caliber vessels. The maternal surface is red-brown with focal defects. Sectioning reveals red-brown, spongy parenchyma. No lesions are identified. [place] sections are submitted in three cassettes as follows: 1- membrane rolls and umbilical cord; 2-3- full thickness sections of placenta. B. received in formalin labeled "right fallopian tube," is a 6 cm in length fimbriated fallopian tube. The outer surface is pereyra mitchell and smooth. Sectioning reveals an unremarkable lumen. [place] sections are submitted in 2 cassettes as follows: 1-fimbria; 2-cross sections of fallopian tube. C. Received in formalin labeled "left fallopian tube," is a 3.5 cm in length fimbriated fallopian tube. The outer surface is pereyra-wiggins and smooth. Sectioning reveals an unremarkable lumen. [place] sections are submitted in 2 cassettes as follows: 1-fimbria; 2-cross sections of fallopian tube. 04/25/2020 [facility]04/25/2020
== END 2020-04-25 14:55 | disposition home or self-care (01) | DRG 540 ==
LOC: JLDR 04-22 11:55 → J3W 04-22 16:20
PROVIDERS: ADMIT Obstetrics & Gynecology; ATTEND Obstetrics & Gynecology
PROC: 10D00Z1 Extraction of Products of Conception, Low, Open Approach (ICD-10-PCS; principal; 2020-04-22)
PROC: 0DNW0ZZ Release Peritoneum, Open Approach (ICD-10-PCS; 2020-04-22)
PROC: 0UB70ZZ Excision of Bilateral Fallopian Tubes, Open Approach (ICD-10-PCS; 2020-04-22)
PROC: 30233N1 Transfusion of Nonautologous Red Blood Cells into Peripheral Vein, Percutaneous Approach (ICD-10-PCS; 2020-04-23)
DX: O34.211 Maternal care for low transverse scar from previous cesarean delivery (principal); N85.8 Other specified noninflammatory disorders of uterus; O99.02 Anemia complicating childbirth; U07.1 COVID-19; D64.9 Anemia, unspecified; O98.82 Other maternal infectious and parasitic diseases complicating childbirth; Z3A.39 39 weeks gestation of pregnancy; Z30.2 Encounter for sterilization; N73.6 Female pelvic peritoneal adhesions (postinfective); Z37.0 Single live birth
CPT/HCPCS: 36415; 36430; 36600; 82803; 85025; 86850; 86900; 86901; 86922; 88302-TC; 88307-TC; P9058

== ENCOUNTER 2023-06-23 21:59 | Emergency (ER) | payer OTHER ==
[2023-06-23 22:44] VITALS: RESP 16; BMI 24.8
[2023-06-23] MEDS ORDERED: SODIUM CHLORIDE 1,000 ML IV STA (23:44)
[2023-06-24 00:18] LABS: INR 1.04 (0.83-1.09); PROTHROMBIN TIME (PATIENT) 12.1 SEC (9.7-13.0)
[2023-06-24 00:20] LABS: ACTIVATED PTT 31.3 SECONDS (25.2-36.5)
[2023-06-24 00:48] LABS: BASO % 0.9 % (0-2.0); EOS % 3.2 % (0-4.5); HEMATOCRIT 28.8 % (32.4-45.2); HEMOGLOBIN 8.9 GM/dL (10.7-15.3); LYMPH % 25.7 % (8-40); MCHC 30.9 g/dl (32.0-36.0); MEAN CELL VOLUME 62.2 fl (80-96); MEAN PLT VOLUME 9.3 fl (7.5-11.1); MONO % 7.8 % (3.8-10.2); NEUT % 62.4 % (42.8-82.8); PLATELET COUNT 223 10^3/uL (134-434); RBC 4.64 M/mm3 (3.60-5.2); RDW 18.4 % (11.6-15.6); WHITE BLOOD COUNT 5.7 K/mm3 (4.0-10.0)
[2023-06-24 00:49] LABS: MCH 19.2 pg (25.7-33.7)
[2023-06-24 01:42] LABS: POTASSIUM 3.9 mmol/L (3.5-5.1)
[2023-06-24 01:44] LABS: CALCIUM 8.9 mg/dL (8.5-10.1)
[2023-06-24 01:46] LABS: BLOOD UREA NITROGEN 9.6 mg/dL (7-18)
[2023-06-24 01:49] LABS: BILIRUBIN,TOTAL 0.4 mg/dL (0.2-1); CREATININE 0.6 mg/dL (0.55-1.3); TOT PROT 7.9 g/dl (6.4-8.2)
[2023-06-24 02:07] VITALS: BP 107/63; PULSE 67; TEMP 97.7
[2023-06-24 02:19] LABS: ANISOCYTOSIS 2+; MACROCYTOSIS 0; OVALOCYTE 2+; TEAR DROP CELLS 2+
== END 2023-06-24 05:13 | disposition home or self-care (01) ==
LOC: JER 21:59
PROC: 3E0337Z Introduction of Electrolytic and Water Balance Substance into Peripheral Vein, Percutaneous Approach (ICD-10-PCS; principal; 2023-06-23)
DX: D64.9 Anemia, unspecified (principal); R53.1 Weakness; R42 Dizziness and giddiness; H53.8 Other visual disturbances; Z20.822 Contact with and (suspected) exposure to COVID-19
CPT/HCPCS: 0241U-QW; 36415; 80053; 84484; 84702; 85025; 85610; 85730; 93005; 93010; 99284-25

== ENCOUNTER 2024-08-12 13:20 | Emergency (ER) | payer OTHER ==
[2024-08-12 13:31] VITALS: BP 109/83; PULSE 79; RESP 18; TEMP 98; BMI 22.9
[2024-08-12] MEDS ORDERED: KETOROLAC TROMETHAMINE 30 MG/1 ML VIAL ONE (14:08)
[2024-08-12] MEDS ORDERED: METOCLOPRAMIDE HCL INJECTION 10 MG/2 ML VIAL ONE (14:08)
[2024-08-12] MEDS: METOCLOPRAMIDE HCL INJECTION 10 MG/2 ML VIAL IM ONE (14:14)
[2024-08-12] MEDS: KETOROLAC TROMETHAMINE 30 MG/1 ML VIAL IM ONE (14:14)
== END 2024-08-12 14:47 | disposition home or self-care (01) ==
LOC: JER 13:20
PROC: 3E0133Z Introduction of Anti-inflammatory into Subcutaneous Tissue, Percutaneous Approach (ICD-10-PCS; principal; 2024-08-12)
PROC: 3E023GC Introduction of Other Therapeutic Substance into Muscle, Percutaneous Approach (ICD-10-PCS; 2024-08-12)
DX: R51.9 Headache, unspecified (principal); G89.29 Other chronic pain; R11.2 Nausea with vomiting, unspecified
CPT/HCPCS: 99284-25